=== PATIENT | male | born 1955 | race Caucasian/White ===

== ENCOUNTER 2016-09-06 01:28 | Emergency (ER) | payer MEDICAID ==
[~2016-09-06] VITALS: Ht 167.6 cm; Wt 68.0 kg
[2016-09-06 09:38] VITALS: BP 156/102
[2016-09-06] MEDS ORDERED: ONDANSETRON ODT 4 MG TAB PO ONE (10:00)
== END 2016-09-06 10:15 | disposition home or self-care (01) ==
LOC: ER 01:28 → EDBD 01:28 → EDSEX 01:28 → ER 10:15
DX: I12.0 Hypertensive chronic kidney disease with stage 5 chronic kidney disease or end stage renal disease (principal); N18.6 End stage renal disease; Z99.2 Dependence on renal dialysis; Z76.0 Encounter for issue of repeat prescription
CPT/HCPCS: 99283; Q0162